=== PATIENT | male | born 1955 | race Asian ===

== ENCOUNTER 2022-04-06 19:47 | Emergency (ER) | payer OTHER ==
[~2022-04-06] VITALS: Ht 172.7 cm; Wt 111.6 kg
[~2022-04-06 19:47] MED LIST: AMLODIPINE PO; COZAAR25 MG PO; DIVALPROEX250 MG PO; DOK100 MG PO; ELIQUIS5 MG PO; FUROSEMIDE40 MG PO; LIPITOR20 MG PO; LORA1TAB17 PO; MEMANTINE HYDROC5 MG PO; METF500T PO; OLANZAPINE20 M1 PO; OMEPRAZOLE40 MG PO; PALIPERIDONE ER9 MG PO; POT CHLORIDE10 MEQ PO
[2022-04-06 20:25] LABS: PLATELET COUNT 266 K/uL (142-355)
[2022-04-06 21:27] VITALS: BP 150/77; TEMP 98.4
[2022-04-06] MEDS ORDERED: AMIODARONE HYD200 MG PO (23:22)
[2022-04-06] MEDS ORDERED: BENZTROPINE0.5 MG PO (23:24)
[2022-04-06] MEDS ORDERED: DIVALPROEX500 MG PO (23:26)
[2022-04-06] MEDS ORDERED: LORA0.5T17 PO (23:31)
[2022-04-06] MEDS ORDERED: ARTIFICIAL TEAR1.4 % OPTH (23:39)
[2022-04-06] MEDS ORDERED: DULCOLAX10 MG RE (23:41)
[2022-04-06] MEDS ORDERED: HALO5INJ3 IM (23:43)
[2022-04-06] MEDS ORDERED: HYOSCYAMIN0.125 MG/M PO (23:45)
[2022-04-06] MEDS ORDERED: ALBUSOL INH (23:47)
[2022-04-06] MEDS ORDERED: MORP20SO PO (23:49)
[2022-04-06] MEDS ORDERED: TYLENOL325 MG PO (23:50)
[2022-04-07] MEDS ORDERED: LIQUID PROTEIN PO (09:04)
== END 2022-04-06 21:27 | disposition still patient (30) ==
LOC: ED 19:47
PROVIDERS: Emergency Medicine Emergency Medical Services
DX: R46.89 Other symptoms and signs involving appearance and behavior (principal); F25.8 Other schizoaffective disorders; Z11.52 Encounter for screening for COVID-19; Z04.6 Encounter for general psychiatric examination, requested by authority
CPT/HCPCS: 36415; 80053; 85027; 87635; 93005; 99283; U0003

== ENCOUNTER 2022-04-28 18:01 | Emergency (ER) | payer OTHER ==
[~2022-04-28] VITALS: Ht 172.7 cm; Wt 99.3 kg
[2022-04-28 18:01] VITALS: BP 173/91; TEMP 98.1
[~2022-04-28 18:01] MED LIST changes: +ACET-206 PO; +ALBUSOL INH; +AMIODARONE HYD200 MG PO; +AMLODIPINE 10 MG PO; -AMLODIPINE PO; +APIX1TAB PO; +ARTIFICIAL TEAR1.4 % OPTH; +Artificial Tears 0.2 OPTH; +BENZTROPINE0.5 MG PO; +CONGENTIN 1MG TAB PO; +DIVALPROEX500 MG PO; +DOCU100C10 PO; +DULCOLAX 10MG SUPP PR; +DULCOLAX10 MG RE; +HALO5INJ3 IM; +HYOS0.128 PO; +HYOSCYAMIN0.125 MG/M PO; +IPRAAER INH; +LIQUID PROTEIN PO; +LORA0.5T17 PO; +LOSA50TA PO; +MORP20SO PO; +NORVASC 5MG TAB PO; +OLANZAPINE10 MG PO; +PACERONE200 MG PO; +PANTOPRAZOLE 40MG TA PO; +POTA10CA3 PO; +TYLENOL325 MG PO
[2022-04-28 18:42] LABS: PLATELET COUNT 268 K/uL (142-355)
[2022-04-28 18:51] LABS: POTASSIUM 4.1 mmol/L (3.6-5.2)
[2022-04-29] MEDS ORDERED: LORA1TAB17 PO (09:33)
[2022-04-29] MEDS ORDERED: ZYPREXA ZYDI10 MG PO (09:37)
[2022-04-29] MEDS ORDERED: ARTIFICIAL TEAR1.4 % OPTH (09:41)
== END 2022-04-28 19:32 | disposition still patient (30) ==
LOC: ED 18:01
PROVIDERS: Emergency Medicine
DX: F25.8 Other schizoaffective disorders (principal); R45.1 Restlessness and agitation; I10 Essential (primary) hypertension; Z11.52 Encounter for screening for COVID-19; Z04.6 Encounter for general psychiatric examination, requested by authority; F17.200 Nicotine dependence, unspecified, uncomplicated
CPT/HCPCS: 36415; 80053; 81002; 85027; 87635; 93005; 99283; U0003

== ENCOUNTER 2023-03-26 19:05 | Emergency (ER) | payer OTHER ==
[~2023-03-26] VITALS: Ht 172.7 cm; Wt 94.3 kg
[2023-03-26 19:05] VITALS: BP 147/69; TEMP 97.7
[~2023-03-26 19:05] MED LIST changes: -AMLODIPINE 10 MG PO; +AMLODIPINE PO; +BENZONATATE100 MG PO; +CEFD300C2 PO; +DAKI1SOL EX; +HALO5TAB10 PO; +LORA2INJ21 INJ; +ZYPREXA ZYDI10 MG PO
[2023-03-26 19:33] LABS: PLATELET COUNT 205 K/uL (142-355)
[2023-03-26] MEDS ORDERED: DIVALPROEX500 M1 PO (21:31)
[2023-03-26] MEDS ORDERED: TAMS0.4C PO (21:32)
[2023-03-26] MEDS ORDERED: FURO20TA67 PO (21:33)
[2023-03-26] MEDS ORDERED: HALO5TAB10 PO (21:33)
[2023-03-26] MEDS ORDERED: PALIPERIDONE ER6 MG PO (21:35)
[2023-03-26] MEDS ORDERED: LORA1TAB17 PO (21:36)
[2023-03-26] MEDS ORDERED: ZOLOFT25 MG PO (21:36)
[2023-03-26] MEDS ORDERED: OXYGEN (21:40)
[2023-04-05] MEDS ORDERED: ACET-206 PO (10:57)
[2023-04-05] MEDS ORDERED: CONGENTIN 1MG TAB PO (10:58)
[2023-04-05] MEDS ORDERED: NORVASC 5MG TAB PO (10:58)
[2023-04-05] MEDS ORDERED: PACERONE200 MG PO (10:58)
[2023-04-05] MEDS ORDERED: DIVALPROEX500 MG PO (10:58)
[2023-04-05] MEDS ORDERED: APIX1TAB PO (10:58)
[2023-04-05] MEDS ORDERED: DULCOLAX 10MG SUPP PR (10:58)
[2023-04-05] MEDS ORDERED: Artificial Tears 0.2 OPTH (10:59)
[2023-04-05] MEDS ORDERED: HALO5TAB10 PO (10:59)
[2023-04-05] MEDS ORDERED: DOCU100C10 PO (10:59)
[2023-04-05] MEDS ORDERED: FURO20TA67 PO (10:59)
[2023-04-05] MEDS ORDERED: METF500T PO (11:00)
[2023-04-05] MEDS ORDERED: LORA1TAB17 PO (11:00)
[2023-04-05] MEDS ORDERED: LOSA50TA PO (11:00)
[2023-04-05] MEDS ORDERED: PANTOPRAZOLE 40MG TA PO (11:01)
[2023-04-05] MEDS ORDERED: OLANZAPINE10 MG PO (11:01)
[2023-04-05] MEDS ORDERED: POTA10CA3 PO (11:01)
[2023-04-05] MEDS ORDERED: SERT50TA PO (11:02)
[2023-04-05] MEDS ORDERED: TAMS0.4C PO (11:02)
== END 2023-03-26 20:48 | disposition other institution (70) ==
LOC: ED 19:05
PROVIDERS: Family Medicine
DX: F29 Unspecified psychosis not due to a substance or known physiological condition (principal); R45.6 Violent behavior; F17.210 Nicotine dependence, cigarettes, uncomplicated; Z02.79 Encounter for issue of other medical certificate
CPT/HCPCS: 36415; 80053; 81002; 85027; 87635; 93005; 99283; U0003